=== PATIENT | male | born 1990 | race Caucasian/White ===

== ENCOUNTER → 2020-01-24 12:42 | Outpatient (CLI) | payer OTHER, SELFPAY ==
--- NOTE | 2020-01-24 | DI.MRI.S_ITS ---
PROCEDURE: MR THORACIC SPINE WO CON INDICATIONS: SPINAL PAIN TECHNIQUE: Noncontrast sagittal T1 spine echo and T2 fast spin echo, sagittal STIR, axial T1 and T2 fast spin echo through the thoracic spine. COMPARISON: None. FINDINGS: Image quality: Excellent. Alignment and Curvature: There is normal bony alignment. Bone Marrow: Marrow is of normal overall signal. No acute vertebral body compression fractures. Spinal Cord: Visualized spinal cord is normal in size and signal. Paraspinous Soft Tissues: No paravertebral masses. Miscellaneous: On axial images, central canal and foramina appear widely patent at all scanned levels. IMPRESSION: Negative thoracic spine MRI. Dictated by: Eliza Larios M.D. on 01/24/2020 at 14:45 Approved by: Eliza Larios M.D. on 01/24/2020 at 14:46
--- NOTE | 2020-01-24 | DI.MRI.S_ITS ---
PROCEDURE: MR CERVICAL SPINE WO CON INDICATIONS: SPINAL PAIN TECHNIQUE: Noncontrast sagittal T1 spin echo and T2 fast spin echo, sagittal STIR, foraminal oblique sagittal T2 fast spin echo, and axial gradient echo or T2 fast spin echo through the cervical spine. COMPARISON: None. FINDINGS: Image quality: Excellent. Alignment and Curvature: There is loss of normal cervical lordosis. Bone Marrow: Marrow demonstrates normal overall signal. Spinal Cord: Visualized spinal cord has normal size and signal. No cerebellar tonsillar herniation. Paraspinous Soft Tissues: No paravertebral masses. Prevertebral soft tissues are normal in thickness. C2-C3: Normal appearance. C3-C4: Normal appearance. C4-C5: Mild diffuse disc bulge. Mild canal stenosis. No foraminal stenosis. C5-C6: Mild disc height loss and desiccation. Mild diffuse disc bulge with superimposed small central protrusion. Moderate canal stenosis. No foraminal stenosis. C6-C7: Normal appearance. C7-T1: Normal appearance. IMPRESSION: 1. Lower cervical degenerative disc disease, causing moderate canal stenosis at C5-C6. No foraminal stenosis. No neural impingement. Dictated by: Eliza Larios M.D. on 01/24/2020 at 14:43 Approved by: Eliza Larios M.D. on 01/24/2020 at 14:45
--- NOTE | 2020-01-24 | DI.MRI.S_ITS ---
PROCEDURE: MR LUMBAR SPINE WO CON INDICATIONS: SPINAL PAIN TECHNIQUE: Noncontrast sagittal T1 spin echo and T2 fast echo, sagittal STIR, axial T1 and T2 fast spin echo through the lumbar spine. In cases with scoliosis, additional coronal T2 fast spin echo may be performed. COMPARISON: None. FINDINGS: Image quality: Excellent. Alignment and Curvature: There is normal bony alignment. Bone Marrow: Marrow is of normal overall signal. No acute vertebral body compression fractures. Spinal Cord: Conus medullaris terminates at the L1-L2 level. Visualized cord demonstrates normal signal and size. Paraspinous Soft Tissues: No paravertebral masses. L1-L2: Normal appearance. L2-L3: Normal appearance. L3-L4: Normal appearance. L4-L5: Normal appearance. L5-S1: Normal appearance. IMPRESSION: Negative lumbar spine MRI. Dictated by: Darnell Bettencourt M.D. on 01/24/2020 at 15:01 Approved by: Darnell Bettencourt M.D. on 01/24/2020 at 15:05
== END ==
PROVIDERS: Referring Provider Student in an Organized Health Care Education/Training Program; Visit Provider Student in an Organized Health Care Education/Training Program
DX: M54.9 Dorsalgia, unspecified (principal); M54.5 Low back pain; M50.322 Other cervical disc degeneration at C5-C6 level; M48.02 Spinal stenosis, cervical region; Z82.61 Family history of arthritis
CPT/HCPCS: 72141; 72146; 72148

== ENCOUNTER 2021-08-04 12:23 | Emergency (ER) | payer OTHER, SELFPAY ==
[2021-08-04 12:36] VITALS: BP 140/75; PULSE 82; RESP 18; TEMP 36.9; O2SAT 98; BMI 25.8
--- NOTE | 2021-08-04 12:42 | DI.RAD.S_ITS ---
PROCEDURE: XR WRIST RT MIN 3V INDICATIONS: Suspected fracture of right hand TECHNIQUE: 4 views of the wrist were acquired. COMPARISON: [facility], , XR HAND RT MIN 3V, 08/04/2021, 12:38. FINDINGS: Bones: A mildly displaced hamate fracture can be seen along its ulnar and dorsal aspects. Scaphoid view: No navicular fractures are seen. Soft tissues: No suspicious soft tissue calcifications. IMPRESSION: Hamate fracture. Please consider a follow-up wrist CT for further evaluation. Dictated by: Jaswinder Srinivasan M.D. on 08/04/2021 at 12:06 Approved by: Jaswinder Srinivasan M.D. on 08/04/2021 at 12:07
--- NOTE | 2021-08-04 12:42 | DI.RAD.S_ITS ---
PROCEDURE: XR HAND RT MIN 3V INDICATIONS: Suspected fracture of right hand TECHNIQUE: 3 views of the hand(s) acquired. COMPARISON: [facility], CR, XR WRIST RT MIN 3V, 08/04/2021, 12:38. FINDINGS: Bones: A mildly displaced hamate fracture can be seen along its ulnar and dorsal aspect. No additional fractures or dislocations. Carpal bones are normally aligned. No suspicious bony lesions. Soft tissues: No suspicious soft tissue calcifications. IMPRESSION: Hamate fracture. Please consider a follow-up wrist CT for further evaluation. Dictated by: Jaswinder Srinivasan M.D. on 08/04/2021 at 12:03 Approved by: Jaswinder Srinivasan M.D. on 08/04/2021 at 12:06
--- NOTE | 2021-08-04 16:52 | ED.UPPEXIN ---
HPI - Extremity Injury (Upper) General Chief Complaint: Extremity Injury, Upper Stated Complaint: POSS BROKEN RT HAND Time Seen by Provider: 08/04/21 16:33 Source: patient Mode of arrival: Ambulatory Limitations: no limitations History of Present Illness HPI narrative: Patient is a 31-year-old male who presents with right hand pain. He said he was working in the garage last night trying to get a bolt out of something when his hand slipped and hit the ground. He has pain between his thumb and index finger and along his 5th finger. No wrist pain. He says no broken multiple bones in the past just wanted to make sure. He has some numbness tingling that seems to be in the 1st web space. No weakness. Related Data Allergies Allergy/AdvReac Type Severity Reaction Status Date / Time No Known Drug Allergies Allergy Verified 08/04/21 12:36 Review of Systems Review of Systems Narrative: GENERAL: Denies chills,fever HEENT: Denies throat pain RESPIRATORY: Denies dyspnea, cough, wheezing CARDIOVASCULAR: Denies chest pain, palpitations GASTROINTESTINAL: Denies nausea, vomiting MUSCULOSKELETAL: See HPI SKIN: No rash, no laceration, no pruritus NEUROLOGIC: Denies weakness, dizziness, headache, numbness 8 point review of systems is negative except for those stated above and HPI Patient History Social History Smoking Status: Current every day smoker Smoking Status: Current every day smoker tobacco type: smokeless tobacco alcohol intake frequency: a few times a month Alcohol type: beer Substance Use Type: does not use Exam Initial Vital Signs Initial Vital Signs: Vital Signs Temperature 98.5 F 08/04/21 12:36 Pulse Rate 82 08/04/21 12:36 Respiratory Rate 18 08/04/21 12:36 Blood Pressure 140/75 08/04/21 12:36 Pulse Oximetry 98 08/04/21 12:36 GENERAL: Well-appearing, well-nourished and in no acute distress. CARDIOVASCULAR: peripheral pulses in tact, cap refill <2 sec RESPIRATORY: No respiratory distress, speaks in full sentences without difficulty EXTREMITIES: Normal range of motion, no clubbing or edema. Neurovascularly intact Tenderness mid hand metacarpal able to make okay sign and move fingers. NEUROLOGICAL: Cranial nerves II through XII grossly intact. Normal gait and speech. SKIN: Warm, dry, no petechiae, no rashes or lesions. Course Orders Ordered: ED Orders 08/04/21 12:42 XR hand RT min 3V Stat XR wrist RT min 3V Stat Vital Signs Vital signs: Vital Signs - 8 hr 08/04/21 12:36 08/04/21 17:06 Temperature 98.5 F Pulse Rate 82 70 Respiratory Rate 18 Blood Pressure 140/75 132/86 Pulse Oximetry 98 96 MDM - Extremity Injury (Upper) Imaging Data Extremity x-ray #1: Radiologist's Impression: PROCEDURE:? XR WRIST RT MIN 3V ? INDICATIONS: Suspected fracture of right hand ? TECHNIQUE:? 4 views of the wrist were acquired.? ? COMPARISON:? [facility], XR HAND RT MIN 3V, 08/04/2021, 12:38. ? FINDINGS:? ? Bones:? A mildly displaced hamate fracture can be seen along its ulnar and dorsal aspects. ? Scaphoid view:? No navicular fractures are seen. ? Soft tissues:? No suspicious soft tissue calcifications.? ? ? IMPRESSION:? Hamate fracture.? Please consider a follow-up wrist CT for further evaluation. ? ? Dictated by: Jaswinder Srinivasan M.D. on 08/04/2021 at 12:06 ? ? Approved by: Jaswinder Srinivasan M.D. on 08/04/2021 at 12:07? Extremity x-ray #2: Radiologist's Impression: PROCEDURE:? XR HAND RT MIN 3V ? INDICATIONS:? Suspected fracture of right hand ? TECHNIQUE:? 3 views of the hand(s) acquired.? ? COMPARISON:? [facility], XR WRIST RT MIN 3V, 08/04/2021, 12:38. ? FINDINGS:? ? Bones:? A mildly displaced hamate fracture can be seen along its ulnar and dorsal aspect. ? No additional fractures or dislocations.? Carpal bones are normally aligned.? No suspicious bony lesions.? ? Soft tissues:? No suspicious soft tissue calcifications.? ? ? IMPRESSION:? Hamate fracture. ? Please consider a follow-up wrist CT for further evaluation.? ? Dictated by: Jaswinder Srinivasan M.D. on 08/04/2021 at 12:03 ? ? Approved by: Jaswinder Srinivasan M.D. on 08/04/2021 at 12:0 [facility] Narrative Medical decision making narrative: Patient is placed in a Velcro splint recommended to follow-up with orthopedic Discharge Plan Departure Patient Disposition: Home Clinical Impression: Closed hamate fracture Qualifiers: Encounter type: initial encounter Hamate bone location: unspecified portion of hamate Fracture alignment: nondisplaced Laterality: right Qualified Code(s): S62.144A - Nondisplaced fracture of body of hamate [unciform] bone, right wrist, initial encounter for closed fracture Instructions: DI for Wrist Fracture Activity Restrictions/Additional Instructions: *You have been diagnosed with hamate fracture *What to do: Keep hand in splint at all times This will take about 6-8 weeks to heal. Please supple with Orthopedics. Elevate and ice as needed. *Continue to take medications as directed Tylenol 1000 mg every 6 hours if needed for [id number] *Follow up with your primary care provider in 2-3 days *Return to ER if you should have increasing pain swelling numbness tingling or any new, worsening or concerning symptoms Referrals: [facility] Roxie Argueta [Provider Group] Warren Bang [Primary Care Provider] -
[2021-08-04 17:06] VITALS: BP 132/86; PULSE 70; O2SAT 96
== END 2021-08-04 17:07 | disposition home or self-care (01) ==
PROVIDERS: Emergency Provider Emergency Medicine; PCP Student in an Organized Health Care Education/Training Program
DX: S62.144A Nondisplaced fracture of body of hamate [unciform] bone, right wrist, initial encounter for closed fracture (principal); W19.XXXA Unspecified fall, initial encounter
CPT/HCPCS: 73110; 73130; 99281; 99283

== ENCOUNTER → 2021-09-16 08:46 | Outpatient (CLI) | payer OTHER, SELFPAY ==
--- NOTE | 2021-09-16 | DI.MRI.S_ITS ---
PROCEDURE: MR SHOULDER LT W CON INDICATIONS: Other instability, left shoulder TECHNIQUE: After the administration of 12 mL of dilute intra-articular Gadolinium contrast, oblique coronal T1 and T2 spin echo with fat saturation, oblique sagittal T1 spin echo with and without fat saturation, oblique sagittal T2 fast spin echo with fat saturation, axial T1 spin echo with fat saturation through the shoulder. COMPARISON: None. FINDINGS: Image quality: Excellent. Rotator cuff: Moderate to high-grade intrasubstance and articular surface tearing of the anterior supraspinatus tendon at the humeral insertion site. The supraspinatus, infraspinatus, and subscapularis tendons otherwise appear intact throughout. No rotator cuff muscle atrophy on sagittal images. Bones and bursae: No bone marrow contusions or fractures. Mild acromioclavicular joint degeneration. The acromion demonstrates conventional anatomy, without an os acromiale. Capsule and soft tissues: There is undercutting of the mid posterior and posteroinferior glenoid labrum with a small paralabral cyst posteriorly inferiorly. The long head of the biceps tendon demonstrates normal location and morphology. The rotator interval appears normal, without fibrosis. The coracohumeral ligament is of normal thickness. No intra-articular bodies. IMPRESSION: 1. Posteroinferior glenoid labral tear. 2. High-grade tearing of the anterior supraspinatus tendon. 3. Acromioclavicular joint osteoarthritis. Dictated by: Eliza Larios M.D. on 09/16/2021 at 9:58 Approved by: Eliza Larios M.D. on 09/16/2021 at 10:00
--- NOTE | 2021-09-16 | DI.RAD.S_ITS ---
PROCEDURE: FL SHOULDER INJECTION MR/CT LT INDICATIONS: Other instability, left shoulder COMPARISON: None. TECHNIQUE: The indications, alternatives, benefits, risks, and complications of the procedure were explained to the patient. Written informed consent was obtained and placed in the chart. The shoulder was examined fluoroscopically and a site for needle placement chosen for entry into the glenohumeral joint from an anterior approach. The skin was prepped and draped in a sterile fashion, and 1% lidocaine infiltrated from skin down to joint capsule. A spinal needle was inserted into the glenohumeral joint, and a small amount of iodinated contrast media injected to confirm intra-articular placement of the needle tip. This was followed by approximately 12 mL dilute solution of a gadolinium containing MR contrast agent. The needle was removed and a dressing was applied. The patient was given postprocedural instructions and sent to the MR suite for MR imaging. FINDINGS: A single fluoroscopic spot image demonstrates intra-articular location of injected iodinated contrast. IMPRESSION: Successful fluoroscopically guided administration of dilute Gadolinium solution into the shoulder joint for MR arthrogram. Dictated by: Eliza Larios M.D. on 09/16/2021 at 10:00 Approved by: Eliza Larios M.D. on 09/16/2021 at 10:01
== END ==
PROVIDERS: PCP Student in an Organized Health Care Education/Training Program; Referring Provider Orthopaedic Surgery; Visit Provider Orthopaedic Surgery
DX: M25.312 Other instability, left shoulder (principal); S43.492A Other sprain of left shoulder joint, initial encounter; M19.012 Primary osteoarthritis, left shoulder
CPT/HCPCS: 23350; 73222; 77002

== ENCOUNTER → 2021-09-23 08:25 | Outpatient (CLI) | payer OTHER, SELFPAY ==
--- NOTE | 2021-09-23 | DI.RAD.S_ITS ---
PROCEDURE: FL SHOULDER INJECTION MR/CT RT INDICATIONS: INSTABILITY COMPARISON: None. TECHNIQUE: The indications, alternatives, benefits, risks, and complications of the procedure were explained to the patient. Written informed consent was obtained and placed in the chart. The shoulder was examined fluoroscopically and a site for needle placement chosen for entry into the glenohumeral joint from an anterior approach. The skin was prepped and draped in a sterile fashion, and 1% lidocaine infiltrated from skin down to joint capsule. A spinal needle was inserted into the glenohumeral joint, and a small amount of iodinated contrast media injected to confirm intra-articular placement of the needle tip. This was followed by approximately 12 mL dilute solution of a gadolinium containing MR contrast agent. The needle was removed and a dressing was applied. The patient was given postprocedural instructions and sent to the MR suite for MR imaging. FINDINGS: A single fluoroscopic spot image demonstrates intra-articular location of injected iodinated contrast. IMPRESSION: Successful fluoroscopically guided administration of dilute Gadolinium solution into the shoulder joint for MR arthrogram. Dictated by: Alma Bernal MD, PhD on 09/23/2021 at 9:24 Approved by: Alma Bernal MD, PhD on 09/23/2021 at 9:24
--- NOTE | 2021-09-23 08:28 | DI.MRI.S_ITS ---
PROCEDURE: MR SHOULDER RT W CON INDICATIONS: SHOULDER PAIN TECHNIQUE: After the administration of 12 mL of dilute intra-articular Gadolinium contrast, oblique coronal T1 and T2 spin echo with fat saturation, oblique sagittal T1 spin echo with and without fat saturation, oblique sagittal T2 fast spin echo with fat saturation, axial T1 spin echo with fat saturation through the shoulder. COMPARISON: [facility], MR, MR SHOULDER LT W CON, 09/16/2021, 9:15. FINDINGS: Image quality: Excellent. Rotator cuff: There is partial-thickness tear of the supraspinatus tendon. The infraspinatus and subscapularis tendons appear intact throughout. No rotator cuff muscle atrophy on sagittal images. Bones and bursae: No bone marrow contusions or fractures. Mild acromioclavicular joint degeneration. The acromion demonstrates conventional anatomy, without an os acromiale. Capsule and soft tissues: There is posterior labral tear with multiple small paralabral cysts. The glenohumeral ligaments appear intact. The long head of the biceps tendon demonstrates normal location and morphology. The rotator interval appears normal, without fibrosis. The coracohumeral ligament is of normal thickness. No intra-articular bodies. IMPRESSION: 1. Posterior labral tear with multiple small paralabral cyst. 2. Partial-thickness tear of the supraspinatus tendon. 3. Mild acromioclavicular joint degeneration. Dictated by: Honey Marcano M.D. on 09/23/2021 at 10:43 Approved by: Honey Marcano M.D. on 09/23/2021 at 11:40
== END ==
PROVIDERS: PCP Student in an Organized Health Care Education/Training Program; Referring Provider Orthopaedic Surgery; Visit Provider Orthopaedic Surgery
DX: M25.311 Other instability, right shoulder (principal); S43.491A Other sprain of right shoulder joint, initial encounter; M19.011 Primary osteoarthritis, right shoulder
CPT/HCPCS: 23350; 73222; 77002

== ENCOUNTER → 2021-12-16 14:57 | Outpatient (CLI) | payer OTHER, SELFPAY ==
--- NOTE | 2021-12-16 15:53 | PM.TREADMILL ---
Cardiac Stress Test Report Referral & Results Indication: chest pain Rest ECG: NSR Procedure Note: TREADMILL STRESS TEST Impression: STANDARD MYLA PROTOCOL 12:01, 12.8 METS, NICHOLE +15%, SLIGHTLY REDUCED EXERCISE CAPACITY, MAX HR 186 (97% OF MAX HR ACHIEVED) NORMAL HEMODYNAMIC RESPONSE TO EXER, NO CHEST PAIN OR ANGINAL SYMPTOMS, BASELIKE ECG SINUS RHYTHM; NO SIGNIFICANT ST CHANGES ON ECG DURING OR AFTER EXER; NO ECTOPY; DENIED CHEST DISCOMFORT; MODERATE SOB, AVIATION PROGRAM MANAGER TO REVIEW, LJ GRAYSON Please note: Actual ECG tracings can be found in the PACS system.
--- NOTE | 2021-12-16 19:40 | DI.NM.S_ITS ---
DATE OF SERVICE: 12/16/2021 PROCEDURE: Exercise stress test. INDICATION: Chest pain, fatigue, smoking. CARDIAC STRESS: The patient underwent exercise stress test under the supervision of an attending staff. The patient walked on Adryan protocol for 10 minutes and 01 seconds, achieved maximal heart rate of 186, which was 97 percent of the target heart rate. Best baseline blood pressure 120/70 mmHg. Peak blood pressure 160/86 mmHg. The patient achieved 12.8 METs of workload. Achieved 97 percent of target heart rate. NICHOLE positive 15 percent. Baseline rhythm was sinus. During stress, no convincing ischemic changes or significant arrhythmias pain seen. No chest pain or anginal symptoms. [place] some shortness of breath. CONCLUSION: Exercise stress test is negative for inducible ischemia. Normal hemodynamic response. Achieved 12.8 METs of workload. No significant arrhythmias seen. No anginal symptoms. Overall low-risk exercise stress test. MakaylaRocco - Jay/marion doc#: [id number]/job#: [id number] dd: 12/16/2021 18:10:00 dt: 12/16/2021 18:43:00 DICTATING /COPIES TO: David Ball MD COPIES MNE: TRICIA;
== END ==
PROVIDERS: PCP Student in an Organized Health Care Education/Training Program; Referring Provider Nurse Practitioner Acute Care; Visit Provider Nurse Practitioner Acute Care
DX: R07.9 Chest pain, unspecified (principal); R53.83 Other fatigue; F17.200 Nicotine dependence, unspecified, uncomplicated
CPT/HCPCS: 93017

== ENCOUNTER → 2021-12-25 08:05 | Outpatient (CLI) | payer OTHER, SELFPAY ==
--- NOTE | 2021-12-25 | DI.ECHO.S_ITS ---
[facility]---------+ [facility] +---------+ : : [address] : : : : [id number] : : : : Phone: [phone]+ Echocardiogram Report + + :Name: LIONEL MORENO Study Date: 12/25/2021 Height: 68 in : :[facility] ReadingLocation: Weight: 170 lb : : Gender: Male BSA: 1.9 m2 : :: 1990 Age: 31 yrs BP: 131/80 mmHg: :Reason For Study: CHEST PAIN : :Ordering Physician: EMELIA, : :CATHERINE Performed By: Jacqueline Jacob : :Referring: CATHERINE KAPOOR : + + Interpretation Summary The ejection fraction is estimated to be 55-60%. Diastolic parameters suggest probable normal left ventricular diastolic function and normal filling pressures. The right ventricle is normal in size and function. No significant valvular abnormalities. Unable to estimate PASP. Procedure: A two-dimensional transthoracic echocardiogram with color flow and Doppler was performed. The study quality was technically adequate. There is no prior echocardiogram noted for this patient. The patient was in sinus rhythm with heart rates between 57-74 bpm during the exam. Left Ventricle: The left ventricle is normal in size and wall thickness. The ejection fraction is estimated to be 55-60%. Diastolic parameters suggest probable normal left ventricular diastolic function and normal filling pressures. Right Ventricle: The right ventricle is normal in size and function. Atria: The left atrial size is normal. Right atrial size is normal. There is no Doppler evidence for an interatrial shunt. Mitral Valve: The mitral valve is normal in structure and function. There is trace mitral regurgitation. Aortic Valve: The aortic valve is trileaflet. The aortic valve opens well. There is no aortic valve stenosis. No aortic regurgitation is present. Tricuspid Valve: The tricuspid valve is normal in structure and function. There is trace tricuspid regurgitation. Pulmonic Valve: The pulmonic valve leaflets are thin and pliable; valve motion is normal. There is trace pulmonic regurgitation. Great Vessels: The aortic root is normal size. The dimensions of the ascending aorta are normal. The IVC is of normal diameter and collapses greater than 50% with a sniff. This suggests a low right atrial pressure of 3 mm Hg. Pericardium/ Pleura There is no pericardial effusion. There is no pleural effusion. MMode/2D Measurements & Calculations LVIDd: 4.2 cm LVOT diam: 2.1 cm LVIDs: 2.7 cm Ao root diam: 3.2 cm FS: 37.0 % asc Aorta Diam: 2.4 cm IVSd: 0.91 cm Ao Arch Diam (Prox Trans): 2.2 cm LVPWd: 0.80 cm LV wilcox. diameter/BSA (cm/m^2): 2.2 LV sys. diameter/BSA (cm/m^2): 1.4 LA A2 area: 14.2 cm2 RA long axis: 4.8 cm LA A4 area: 15.2 cm2 RA area: 14.0 cm2 LA length (vol): 4.5 cm RA vol: 34.7 ml LA vol: 41.2 ml RA : 18.2 ml/m2 LA vol index: 21.6 ml/m2 IVC diam: 1.6 cm RVD1 (basal): 3.5 cm RVD2 (mid): 3.1 cm TAPSE: 2.1 cm Doppler Measurements & Calculations Ao V2 max: 108.1 cm/sec LVOT Max Maynor: 83.0 cm/sec Ao V2 mean: 68.5 cm/sec LV V1 max P.8 mmHg Ao max P.7 mmHg LV V1 VTI: 16.1 cm Ao mean P.2 mmHg MICK(I,D): 2.6 cm2 Ao V2 VTI: 22.2 cm MICK(V,D): 2.8 cm2 sev ratio: 0.73 MICK indexed to BSA (cm^2/m^2): 1.4 MV E max maynor: 63.9 cm/sec TR max maynor: 215.7 cm/sec MV A max maynor: 37.5 cm/sec TR max P.6 mmHg MV E/A: 1.7 PA V2 max: 94.3 cm/sec Med Peak E' Maynor: 11.5 cm/sec PA V2 mean: 65.9 cm/sec E/E' med: 5.6 PA mean P.0 mmHg Lat Peak E' Maynor: 14.6 cm/sec PA pr(Accel): 29.3 mmHg E/E' lat: 4.4 E/e' average: 5.0 MV dec time: 0.23 sec SV(LVOT): 58.5 ml Reading Physician:10:00 AM
== END ==
PROVIDERS: PCP Student in an Organized Health Care Education/Training Program; Referring Provider Nurse Practitioner Acute Care; Visit Provider Nurse Practitioner Acute Care
DX: R07.9 Chest pain, unspecified (principal)
CPT/HCPCS: 93306

== ENCOUNTER → 2022-09-03 07:52 | Outpatient (CLI) | payer OTHER, SELFPAY ==
--- NOTE | 2022-09-03 | DI.MRI.S_ITS ---
PROCEDURE: MR ANKLE RT WO CON INDICATIONS: Other instability, right ankle TECHNIQUE: Noncontrast sagittal T1 spin echo and T2 fast spin echo with fat saturation, axial proton density fast spin echo and T2 fast spin echo with fat saturation, coronal T1 spin echo and T2 fast spin echo with fat saturation through the ankle/hindfoot. COMPARISON: None. FINDINGS: Image quality: Excellent. Bones and joints: No bone marrow contusions or fractures. No hindfoot coalitions. No osteochondral injuries of the talar dome. No pathologic joint effusions. Medial structures: The posterior tibialis, flexor digitorum longus, and flexor hallucis longus tendons are intact. Small amount of fluid distending flexor tendon sheath is seen at the level of distal navicular joint. The posterior tibial neurovascular bundle appears normal within the tarsal tunnel, without extrinsic mass effect. The deltoid ligament is thickened. The spring ligament complex is grossly intact. Lateral structures: The anterior talofibular, calcaneofibular, and posterior talofibular ligaments appear intact. More superiorly, the anterior and posterior tibiofibular ligaments appear intact, as is the intermalleolar ligament. The tibiofibular syndesmosis is normal in width at 2 mm or less. The peroneus longus and brevis tendons demonstrate normal location and morphology. Adjacent bony peroneal tubercle and retrotrochlear prominence are normal in size. The sinus tarsi demonstrates normal fatty signal, without edema, fibrosis, or cyst formation. Visualized sinus tarsi components (cervical ligament, interosseous talocalcaneal ligament, roots of the inferior extensor retinaculum) appear normal. The calcaneonavicular and calcaneocuboid components of the bifurcate ligament appear intact. The dorsal calcaneocuboid ligament appears intact. Anterior structures: The tibialis anterior, extensor hallucis longus, and extensor digitorum longus tendons appear intact. The dorsal talonavicular ligament appears intact. Posterior and plantar structures: Achilles tendon is intact. Medial and lateral bands of the plantar fascia are of normal thickness. No abductor digiti quinti muscle atrophy to suggest Ramirez neuropathy. IMPRESSION: 1. Low-grade sprain involving deep and superficial fibers of deltoid ligament. Spring ligament complex is intact. Lateral ankle ligaments are intact. 2. Mild tenosynovitis involving flexor tendons at the level of talonavicular joint. Rest of the ankle tendons are intact. 3. No marrow edema. No fracture or dislocation. No significant joint effusion. No gross osteochondral injuries of talar dome. Dictated by: Leo Salas M.D. on 09/03/2022 at 9:45 Approved by: eLo Salas M.D. on 09/03/2022 at 10:07
== END ==
PROVIDERS: Referring Provider Podiatrist; Visit Provider Podiatrist
DX: S93.421A Sprain of deltoid ligament of right ankle, initial encounter (principal); M25.371 Other instability, right ankle; M65.871 Other synovitis and tenosynovitis, right ankle and foot; M25.571 Pain in right ankle and joints of right foot; R26.2 Difficulty in walking, not elsewhere classified
CPT/HCPCS: 73721

== ENCOUNTER 2022-11-20 12:10 | Day surgery (SDC) | payer OTHER, SELFPAY ==
[2022-11-18 08:46] VITALS: BMI 25.0
[2022-11-20] VITALS (9 sets, daily range): BP systolic 125–155; BP diastolic 85–96; PULSE 68–91; RESP 11–18; TEMP 36.3–37.1; O2SAT 96–100; BMI 24.7
[2022-11-20] MEDS: LACTATED RINGERS 1,000 ML 42 ML IV ×3 (13:13→16:05)
[2022-11-20] MEDS: ACETAMINOPHEN 325 MG TABLET 975 MG PO (13:20)
[2022-11-20] MEDS: OXYMETAZOLINE NASAL SPRAY 15 ML 2 SPRAYS NASAL ×2 (13:21→15:43)
--- NOTE | 2022-11-20 14:43 | PM.PREOP ---
Pre-operative Note Interval Note History & Physical reviewed/Exam performed by Physician: Yes Changes to H&P: No
--- NOTE | 2022-11-20 14:43 | PM.HP.1 ---
History of Present Illness History of Present Illness Date Patient Seen: 11/20/22 Time Patient Seen: 14:43 Chief complaint: Septoplasty Narrative: 32-year-old male last seen in clinic 08/12/2022 presents with persistent nasal obstruction, wants to proceed with scheduled septoplasty, bilateral inferior turbinate reduction, and bilateral thelma bullosa resection today as outpatient. Prior cardiac clearance was obtained 12/25/2021, sleep study was negative in the past. No interval health changes other than 2 additional surgeries, recovering well. Patient History Medical History Acute rhinosinusitis Arthritis Thelma bullosa GERD (gastroesophageal reflux disease) Nasal obstruction Nasal septal deviation Nasal turbinate hypertrophy Tinnitus Surgical History History of esophagogastroduodenoscopy (EGD) (03/13/22) Hx of colonoscopy (03/13/22) Hx of tonsillectomy Family & Social History Social History: household members spouse Tobacco & Substance use: Tobacco type smokeless tobacco Smoking Status Current every day smoker alcohol intake current alcohol intake frequency a few times a month Substance Use Type does not use Meds Home Medications and Allergies Home Medications Medication Instructions Recorded Confirmed Type gabapentin 100 mg capsule 100 mg PO TID 11/20/22 11/20/22 History Allergies Allergy/AdvReac Type Severity Reaction Status Date / Time No Known Drug Allergies Allergy Verified 11/20/22 13:12 Review of Systems Review of Systems Narrative: Negative except as listed in the HPI Exam Vital Signs (past 8 hours): - 11/20/22 13:01 Temperature 97.9 F Pulse Rate 74 Respiratory Rate 18 Blood Pressure 155/91 H Pulse Oximetry 98 Oxygen Delivery Method Room Air Oxygen Delivery Method Room Air Narrative Exam Narrative: Well-developed well-nourished male in no acute distress. Heart regular rate and rhythm without murmur, lungs clear to auscultation bilaterally Assessment & Plan Assessment & Plan narrative: Assessment: Nasal airway obstruction, septal deviation, inferior turbinate hypertrophy, bilateral thelma bullosa Plan: Following discussion of the material risks benefits complications and alternatives, he elected to proceed with the above procedures as outpatient. Time Spent With Patient Critical Care time: I spent a total of [] minutes of critical care time on this patient's care today; this time is exclusive of procedural time.
--- NOTE | 2022-11-20 14:45 | P.OP_ITS ---
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 Bilateral endoscopic thelma bullosa excision of the middle turbinates 2. Septoplasty 3. Bilateral inferior turbinate reduction via intramural cautery Same procedure as scheduled: Yes Indications: 32-year-old male with the above diagnoses incompletely managed with medical therapy presents for the above procedure. Following discussion of the material risks benefits complications and alternatives, the patient elected to proceed. Surgeon: Fady Ramírez Click Yes if Unassisted: Yes Anesthesia Type: General and Local Operative Notes Findings: 2+ left anterior and posterior septal deviation, right greater than left inferior turbinate hypertrophy. Healthy mucosa within the thelma bullosa. Estimated Blood Loss (mL): 30 Procedure in detail: Following identification and confirmation of consent as well as preoperative Afrin nasal spray, the patient was brought to the operating room suite and placed in the supine position. General endotracheal anesthesia was administered. I infiltrated the septum widely bilaterally with 1% lidocaine 1 100,000 epinephrine followed by temporary packing with cotton with Afrin and 4% lidocaine. Following sterile prep and drape, the packing was removed and I performed a right arnoldo-transfixion incision, elevated the right mucoperichondrial and mucoperiosteal flap. I disarticulated near the bony/cartilaginous junction and elevated the left mucoperiosteal flap. Deviated portions of the perpendicular plate of the ethmoid and vomer were resected. The residual quadrilateral cartilage was further straightened by trimming it inferiorly as well as reducing the maxillary crest. A 2 mm strip of cartilage paralleling the residual 1 cm dorsal strut was resected to further straighten the quadrilateral cartilage. The caudal septum was left intact for support. The hemitransfixion incision was closed with interrupted 5 0 chromic followed by a running 4 0 plain gut mattress suture to reapproximate the septal flaps. The head of each inferior turbinate had been previously infiltrated with additi onal local anesthetic and a 25 gauge spinal needle was used to impale the length of the turbinate, with cautery on a setting of 15 activated on slow withdrawal over 2 passes each side. The turbinates were then outfractured. Under endoscopic guidance the posterior and anterior superior insertion of each middle turbinate was then infiltrated with additional local anesthetic via spinal needle. Beginning on the left side, the middle turbinate was slightly medialized and the lateral portion of the thelma bullosa was resected with the microdebrider. This process was repeated on the right side. At case completion, 20/1000th of an inch silastic splints were placed bilaterally, sutured anteriorly with a single 4 0 nylon, with the posterior ends to liberally within the middle meatus. The procedure completed, sponge and needle counts were correct and the patient was extubated in the operating room and taken to recovery room in stable condition without known complication. Complications: none Post-operative Condition: stable Disposition: same day surgery Plan for aftercare: Nasal saline every hour while awake, begin irrigations t.i.d. tomorrow if desired. Polysporin to the nostrils at all times, Tylenol alternating with Advil for pain control, oxycodone for breakthrough pain. Elevate head of bed, no nose blowing, no straining for 2 weeks. Ice directly under the nose on the upper lip has tolerated 24-48 hours at a minimum. Follow-up in 1 week for nasal splint removal.
--- NOTE | 2022-11-20 15:32 | SUR.OPER ---
Supine on padded OR bed, head on gel doughnut , arms padded and tucked at sides, legs uncrossed, safety belt at thigh, tape over blanket over lower legs .
[2022-11-20] MEDS: EPINEPHrine 1 MG/ML 6 MG TOP (15:41)
[2022-11-20] MEDS: LIDOCAINE 4% SOLN 50 ML 20 ML TOP (15:43)
[2022-11-20] MEDS: LIDOCAINE 1% W/EPI 20 ML INJ (15:44)
[2022-11-20] MEDS: fentaNYL 100 MCG/2 ML INJ IV (16:48)
[2022-11-20] MEDS: OXYCODONE IR 5 MG TABLET PO ×2 (16:55→17:26)
--- NOTE | 2022-11-20 17:39 | SUR.PHASEII ---
DC with . all belongings with patient. WC to car.
== END 2022-11-20 17:40 | disposition home or self-care (01) ==
PROVIDERS: Referring Provider Otolaryngology; Visit Provider Otolaryngology
PROC: (CPT 30520; principal; 2022-11-20 13:15)
PROC: (CPT 31231; 2022-11-20 13:15)
DX: J34.89 Other specified disorders of nose and nasal sinuses (principal); J34.2 Deviated nasal septum; J34.3 Hypertrophy of nasal turbinates
CPT/HCPCS: 31240; 30802; 30520; A9270; J0171; J1100; J2405; J2704; J3010